=== PATIENT | female | born 1960 | race Caucasian/White ===

== ENCOUNTER → 2024-03-13 14:26 | Outpatient (REF) | payer BC, SELFPAY | LOC: HWWDC 14:26 | PROVIDERS: ATTENDING PHYSICIAN Student in an Organized Health Care Education/Training Program | DX: Z12.31 Encounter for screening mammogram for malignant neoplasm of breast (principal) | CPT/HCPCS: 77063; 77067 ==

== ENCOUNTER 2025-04-13 14:15 | Day surgery (SDC) | payer BC, SELFPAY ==
[2025-04-13] VITALS (14 sets, daily range): BP systolic 115–174; BP diastolic 56–95; BMI 26.8
--- NOTE | 2025-04-13 06:48 | ED.GENMED ---
History of Present Illness
General
Chief Complaint: Abdominal Pain
Source: patient
Exam Limitations: none
Time Seen by Provider: 04/13/25 06:27
History of Present Illness
History of Present Illness:
64yoF with a history of neurocardiac syncope and hypothyroidism presenting for evaluation of abdominal pain. Patient had a transient episode of right flank pain about 4 days ago. She started to experience some discomfort in her right abdomen
yesterday which started to worsen and become constant overnight. Pain is worse with movement. She has not taken anything [id number] for her symptoms. She is also experiencing nausea and dry heaves. She did not have any bowel movements
yesterday but started to experience loose stools overnight. She denies any chest pain, shortness of breath, fevers, urinary symptoms. No previous abdominal surgeries.
Past History
Past History
ED Past Medical History: Other (History of syncope and she takes Norpace and a history of hypothyroidism)
ED Past Surgical History: None
Social History
Tobacco: Non-smoker
Alcohol: Occasional
Personal:
Living: with family
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
Family History
Family History: Other (Melanoma)
Phy Exam
General Physical Exam
General Presentation: well appearing and no apparent distress
General Skin: warm and dry
General Habitus: normal
General Mental: alert
ENT Exam
ENT Exam: normocephalic
Pulmonary Exam
Pulmonary Exam: no respiratory distress
Gastrointestinal Exam
Gastrointestinal Exam: soft, non distended and other (+Tenderness in RLQ and R mid abdomen. +Rebound tenderness. Negative William's sign.)
Neurological Exam
Neurological Exam: alert
Rosa Coma Scale
Eye Opening: Spontaneous
Verbal Response: Oriented
Motor Response: Obeys Commands
GCS Total Score: 15
Skin Exam
Skin Exam: normal color and warm/dry
Psychiatric Exam
Psychiatric Exam: normal mood/affect
Course
Orders/Labs/Results
Orders:
Orders
04/13/25 06:40
Urine Reflex Culture from UA [Urinalysis Reflex To Culture] Urgent
Date Specimen was Collected: 04/13/25
Time Specimen was Collected: 06:37
04/13/25 06:43
0.9% Sodium Chloride 1000 ml [Nss] 1,000 ml IV BOLUS
Ondansetron Injectable [Zofran] 4 mg IV NOW STA
04/13/25 06:44
CT Abd/pelvis W Iv Cont Urgent
Comment:
Reason For Exam: RLQ pain
Cardiac Monitoring- Treatment ONCE
04/13/25 06:46
Complete Blood Count/With Diff Urgent
Comprehensive Metabolic Panel Urgent
Lipase Urgent
04/13/25 09:11
Piperacillin/Tazo 4.5 Gram [Zosyn] 4.5 gram in 100 ml IV NOW
04/13/25 09:15
0.9% Sodium Chloride 1000 ml [Nss] 1,000 ml IV BOLUS
Prochlorperazine [Compazine] 10 mg IV NOW STA
04/13/25 10:08
Fentanyl Citrate/Pf [Sublimaze] 25 mcg IV [id number] PRN
HYDROmorphone [Dilaudid] 0.25 mg IV [id number] PRN
HYDROmorphone [Dilaudid] 0.5 mg IV PACU-[id number] PRN
Ondansetron Injectable [Zofran] 4 mg IV PACU-ONCEPRN PRN
Prochlorperazine [Compazine] 5 mg IV PACU-ONCEPRN PRN
Notify MD As Directed
Notify physician if: for SDS patients with known or suspected sleep obstructive sleep apnea, monitor in the
PACU.
Notify MD for any apneic/desaturation episodes
O2 Therapy [RESP] Urgent
Titrate/Wean O2 to maintain O2 sat greater than (%): 92
Special Instructions: -Provide supplemental oxygen to achieve O2 sat of 92% or greater.
-After 15 min, may wean O2 and discontinue if patient is able to maintain O2 sat of 92%
or greater during recovery period.
If patient is a discharge home, without oxygen therapy, notify anestheiologist if
unable to maintain O2 SAT of 92% or greater on room air for MD clearance.
04/13/25 10:15
Normosol (Mult Electrolytes) [Normosol-R/Plasmalyte-A] 1,000 ml IV PER PROTOCOL
Abnormal Lab Results
04/13/25
06:46
RBC 4.06 L 10^6/uL
(4.20-5.40)
MCH 31.3 H pg
(27.0-31.0)
MPV 11.4 H fL
(7.4-10.4)
Absolute Neuts (auto) 7.7 H 10^3/uL
(1.4-6.5)
Absolute Lymphs (auto) 0.9 L 10^3/uL
(1.2-3.4)
Neutrophils % 84.4 H %
(42.2-75.2)
Lymphocytes % 10.0 L %
(20.5-51.1)
Glucose 114 H mg/dl
(70-99)
04/13/25 06:46
04/13/25 06:46
Vital Signs
Initial and Last Documented VS:
Initial Vital Signs
Temp Pulse Resp BP Pulse Ox
98.4 F 72 20 174/86 100
04/13/25 06:04 04/13/25 06:04 04/13/25 06:04 04/13/25 06:04 04/13/25 06:04
Last Documented Vital Signs
Temp Pulse Resp BP Pulse Ox
98.4 F 72 20 154/80 99
04/13/25 06:04 04/13/25 06:04 04/13/25 06:04 04/13/25 10:00 04/13/25 08:02
MDM/Problems Addressed
Differential Diagnosis Includes:
64yoF here with R lower abd pain that started to worsen over 24 hours. Associated with nausea. She is hypertensive but otherwise normal vital signs. She is nontoxic-appearing. There is rebound tenderness noted on abdominal exam. Differential
diagnosis includes but is not limited to: Appendicitis, epiploic appendagitis, colitis, cholecystitis, kidney stone
Initial ED plan: Check abdominal labs, UA, and CT abdomen. She declines analgesics. IV Zofran and fluid bolus ordered.
*Pulse Oximetry
SaO2: 100
Oxygen Mode of Delivery: Room air
Patient hypoxic: no
*Critical Care Note
Total Time (30-74mins, 75-104mins- exclusive of procedures): Not Applicable
Update Note
Update Note:
CT shows evidence of acute appendicitis. There is a nodule seen incidentally near the pancreatic tail. Patient informed of this incidental finding and she was provided with a copy of her CT scan results. White count and labs unremarkable.
General surgery notified. IV Zosyn ordered and patient admitted for further management.
ED Attending Note
-
Portions of this chart may have been created with voice recognition software.� Occasional wrong word or��sound alike� substitutions may have occurred due to the inherent limitations of voice recognition software.
Discharge Plan
Departure
Patient Disposition: Admit
Date of Disposition: 04/13/25
Time of Disposition: 09:20
Presentation/result/management discussed w/ accepting /DO: Dr. Champion
Discharge Problem:
Acute appendicitis, Pancreatic lesion
Prescriptions:
No Action
disopyramide phosphate 100 mg capsule
100 mg PO TID
levothyroxine [Synthroid] 100 mcg tablet
100 mcg PO DAILY@0600
midodrine 2.5 mg tablet
2.5 mg PO DAILY
simethicone [Gas-X] 80 mg Tablet,Chewable
80 mg PO TIDPRN PRN (Reason: GAS PAINS)
cholecalciferol (vitamin D3) [Vitamin D3] 25 mcg (1,000 unit) Capsule
25 mcg PO DAILY
Probiotic 10 billion cell Capsule
10,000 mmu cells PO DAILY
Referrals:
Inés Dunaway PA-C [Family Provider, Family Practice]
Interventions
Interventions:
*Risk Screen - Suicide Last Done: 04/13/25 06:34
*General Assessment Last Done: 04/13/25 06:34
*Neglect/Abuse Screening Last Done: 04/13/25 06:34
*ED- Fall Risk Assessment Last Done: 04/13/25 06:34
*ED COVID-19 Vaccine History Last Done: 04/13/25 06:34
CG-Okhfai-Jbufqktaza Assessment Last Done: 04/13/25 06:34
Discharge Date and Time
Print Language: OMANI
[2025-04-13] MEDS: NSS 1000 IV ×2 (06:49→09:31)
[2025-04-13] MEDS: ZOFRAN 4 MG IV (06:49)
[2025-04-13 06:57] LABS: Hematocrit 37.3 % (37.0-47.0); Hemoglobin 12.7 g/dL (12.0-16.0); Mean Corp Hgb Conc. 34.0 g/dL (33.0-37.0); Mean Corpuscular Volume 91.9 fL (81.0-99.0); Nucleated Red Blood Cells % 0 %; Platelet Count 153 10^3/uL (130-400); Red Cell Dist. Width 12.3 % (11.5-14.5)
[2025-04-13 07:17] LABS: ALT (SGPT) 21 U/L (0-35); AST (SGOT) 23 U/L (14-36); Albumin 4.2 g/dl (3.5-5.0); Alkaline Phosphatase 70 U/L (38-126); Blood Urea Nitrogen 11 mg/dl (7-17); Calcium 8.7 mg/dl (8.4-10.2); Carbon Dioxide 25 mmol/L (22-30); Chloride 104 mmol/L (98-107); Estimated Creatinine Clearance 68 ml/min; Glucose 114 mg/dl (70-99); Lipase 123 U/L (23-300); Potassium 4.4 mmol/L (3.5-5.1); Sodium 135 mmol/L (135-145); Total Protein 6.3 g/dl (6.3-8.2); eGFR > 60.00
[2025-04-13 07:22] LABS: Urine Character Clear (Clear)
[2025-04-13] MEDS: COMPAZINE 10 MG IV (09:30)
[2025-04-13] MEDS: ZOSYN 100 IV (09:31)
--- NOTE | 2025-04-13 10:17 | CON.GS ---
Medical History
-
Chief Complaint: RLQ abdominal pain
History of Present Illness:
Patient is a 64 yo F with a PMH of neurocardiac syncope and hypothyroidism who presents with RLQ abdominal pain. Ms. Sepulveda states that on Saturday she had a brief episode of RIGHT flank pain which resolved with ibuprofen. Over the weekend she
denies any pain or discomfort. On Saturday she developed worsening RLQ abdominal pain which has since persisted. Associated nausea and dry heaves, as well as chills. She denies any fevers or true vomiting episodes. No diarrhea or bloody stools.
No chronic GI issues. Colonoscopy in 2020 notable for 4 mm hyperplastic polyp of the descending colon and diverticulosis.
Past Medical History
Past Medical History: Other (Cardiogenic syncope)
Past Surgical History: Orthopedic (LEFT knee surgery)
Social History
Tobacco: Non-Smoker
Alcohol: Occasional
Drug: None
Personal:
Living: With Family
Family History
Family History: Reviewed & Noncontributory
Allergies / Home Medications
Allergy/AdvReac Type Severity Reaction Status Date / Time
adhesive Allergy Unknown Verified 04/13/25 06:07
NKA - No Known Allergies Allergy Unknown Uncoded 09/20/21 15:07
�Medication �Instructions �Recorded �Confirmed �Type
Lactobacillus acidophilus 10 10,000 mmu cells PO DAILY 04/13/25 04/13/25 History
billion cell capsule (Probiotic)
cholecalciferol (vitamin D3) 25 25 mcg PO DAILY 04/13/25 04/13/25 History
mcg (1,000 unit) capsule (Vitamin
D3)
disopyramide phosphate 100 mg 100 mg PO TID 04/13/25 04/13/25 History
capsule
levothyroxine 100 mcg tablet 100 mcg PO DAILY@0600 04/13/25 04/13/25 History
(Synthroid)
midodrine 2.5 mg tablet 2.5 mg PO DAILY 04/13/25 04/13/25 History
simethicone 80 mg chewable tablet 80 mg PO TIDPRN PRN GAS PAINS 04/13/25 04/13/25 History
Review of Systems
-
A 10 point review of systems was completed, and was negative except as per HPI.
Physical Exam
Vital Signs
Temp Pulse Resp BP Pulse Ox
98.4 F 72 20 174/86 100
04/13/25 06:04 04/13/25 06:04 04/13/25 06:04 04/13/25 06:04 04/13/25 06:50
04/12/25 04/13/25 04/14/25
06:59 06:59 06:59
Actual Weight 75.4 kg
Body Mass Index (BMI) 26.8
Lab Results
04/13/25 06:46
04/13/25 06:46
WBC 9.1 10^3/uL (4.8-10.8) 04/13/25 06:46
Hgb 12.7 g/dL (12.0-16.0) 04/13/25 06:46
Hct 37.3 % (37.0-47.0) 04/13/25 06:46
Plt Count 153 10^3/uL (130-400) 04/13/25 06:46
Abs Immat Gran (auto) 0.0 10^3/uL (0-0.05) 04/13/25 06:46
Neutrophils % 84.4 % (42.2-75.2) H 04/13/25 06:46
Physical Exam
General: Well Developed, Well Nourished and No Apparent Distress
HEENT: Normocephalic and Anicteric
Respiratory: Non Labored Respirations
Cardiac: Regular Rhythm
GI: Soft, Non Distended, Tender (RLQ) and Other (No diffuse peritonitis)
Skin: Warm and Dry
Neuro: Nonfocal/Grossly Intact
Data Reviewed
-
CT Scan: Image Personally Visualized and interpreted and Report Reviewed by me
Labs: Labs Reviewed by me
Old Records: Reviewed
Assessment / Plan
-
Patient is a 64 yo F p/w acute appendicitis
The natural history and pathophysiology of appendicitis was reviewed. CT scan imaging as a relates to her appendix was reviewed. Options for management including medical management with antibiotics versus surgical management with appendectomy were
considered and discussed. The pros and cons of both approaches was discussed. Specifically, we discussed failure of medical management and future episodes of appendicitis versus surgical risks. Recommended plan for appendectomy.
Plan for a laparoscopic appendectomy. The procedure itself, as well as the risks, benefits, and alternatives was discussed. Specifically, we discussed the risks of bleeding, infection, injury to surrounding structures (bowel, bladder), staple line
leak, and need for open reoperation. Typical postprocedural coverage was discussed. All questions answered. Consent signed.
-- Laparoscopic appendectomy
-- NPO, IVF
--Pain control: Tylenol and IV Dilaudid as needed
-- Antibiotics: Zosyn
--- NOTE | 2025-04-13 10:23 | W.SUR.PREOP ---
Pre-Operative Surgical Note
-
I have examined this patient prior to the performance of the scheduled procedure.
The patient's condition is unchanged from the time of the current History and
Physical and the patient is able to undergo the scheduled procedure.
--- NOTE | 2025-04-13 12:50 | CM ---
CM reviewed chart and met with pt bedside in ED. Lives with her in 2 story home, [address], has first floor half bath, full flight to second floor bedroom and full bath.
Independent in ADLs, personal care and ambulation at baseline. No assistive devices. Has RW from past surgery.
Confirms prescription coverage.
No hx VN or SNF
PCP: Inés Dunaway
Pharmacy: [facility] [address]
Anticipate discharge home, CM will continue to follow for any discharge planning needs.
--- NOTE | 2025-04-13 15:49 | W.IMMPOSTOP ---
Surgical Immed Post Op Note
-
Primary Surgeon: Jaycee
Assisting Surgeon: None
Pre-op Diagnosis: Acute appendicitis
Post-op Diagnosis: Acute appendicitis
Procedure Performed: Laparoscopic appendectomy
Anesthesia Type: General
Specimen / Cultures:
1. Appendix
Estimated Blood Loss: 3 cc
Complications: None
Operative Findings:
1. Acutely inflamed dilated appendix, healthy base, no perforation, turbid, purulent fluid removed from pelvis
2. Mesentery taken with Ligasure, base with harden load stapler
[2025-04-13] MEDS: TYLENOL PO (16:37)
[2025-04-13] MEDS: NORMOSOL-R/PLASMALYTE-A 1000 IV (18:11)
[2025-04-13] MEDS: NON-FORMULARY ITEM PO (18:46)
[2025-04-13] MEDS: ZOSYN 50 IV (19:50)
[2025-04-13] MEDS: TYLENOL 650 MG PO ×2 (19:50→23:18)
[2025-04-13] MEDS: NON-FORMULARY ITEM 100 MG PO (21:25)
[2025-04-14] MEDS: ZOSYN 50 IV ×2 (01:04→08:02)
[2025-04-14 03:06] VITALS: BP 111/64
[2025-04-14] MEDS: TYLENOL 650 MG PO ×2 (03:17→08:01)
[2025-04-14] MEDS: SYNTHROID 100 MCG PO (05:19)
[2025-04-14 07:15] VITALS: BP 131/75
[2025-04-14] MEDS: NON-FORMULARY ITEM 100 MG PO (08:01)
--- NOTE | 2025-04-14 09:27 | W.PN.GS2 ---
Today's Communication / Plan
-
-- DC today
Assessment / Plan
-
Patient is a 64 yo F POD#1 s/p laparoscopic appendectomy
AVSS
No repeat labs
Recovering well. No postoperative concerns. Okay for discharge from surgical perspective.
-- Regular diet
-- Pain control: Tylenol, Toradol, Oxycodone
-- HLIV
-- Abx: Zosyn, plan for Augmentin 4 d on DC
-- DVT: Lovenox, SCDs
-- DC today
Subjective Data
-
Date of Service: April 14, 2025
No concerns or complaints. Pain well-controlled. Tolerated regular diet. No nausea or vomiting. Passing flatus. Afebrile. Ambulating. Voiding.
Objective Data
-
Intake and Output
04/13/25 04/14/25 04/15/25
06:59 06:59 06:59
Intake Total 1240 / 1240
Balance 1240 / 1240
Intake:
Oral fluids 240 / 240
IV fluids (Total) 900 / 900
Normosal 200 / 200
IV piggybacks 100 / 100
Other:
Number of approximated MODERATE 3
amounts of urine
Vital Signs
Temp Pulse Resp BP Pulse Ox
97.8 F 60 16 131/75 100
04/14/25 07:15 04/14/25 07:15 04/14/25 07:15 04/14/25 07:15 04/14/25 07:15
Lab Results
04/13/25 06:46
04/13/25 06:46
Calcium 8.7 mg/dl (8.4-10.2) 04/13/25 06:46
Total Bilirubin 0.5 mg/dl (0.2-1.3) 04/13/25 06:46
AST 23 U/L (14-36) 04/13/25 06:46
ALT 21 U/L (0-35) 04/13/25 06:46
Alkaline Phosphatase 70 U/L (38-126) 04/13/25 06:46
Total Protein 6.3 g/dl (6.3-8.2) 04/13/25 06:46
Albumin 4.2 g/dl (3.5-5.0) 04/13/25 06:46
Physical Exam
-
Gen: NAD
Abd: soft, NT/ND, non-peritoneal, incisions c/d/i - no erythema, ecchymosis or drainage
Patient has a mahoney catheter: No
Patient has a central line: No
== END 2025-04-14 10:59 | disposition home or self-care (01) ==
LOC: PACU 14:15
PROVIDERS: Physician Assistant; ATTENDING PHYSICIAN Surgery; EMERGENCY PHYSICIAN Emergency Medicine; FAMILY PHYSICIAN Student in an Organized Health Care Education/Training Program
DX: K35.80 Unspecified acute appendicitis (principal)
CPT/HCPCS: 44970; 74177; 80053; 81003; 83690; 85025; 88304; 96374; 96375; 99284; Q9967

== ENCOUNTER → 2025-06-28 17:20 | Outpatient (REF) | payer BC, SELFPAY | LOC: MRI 17:20 | PROVIDERS: ATTENDING PHYSICIAN Internal Medicine Gastroenterology; FAMILY PHYSICIAN Student in an Organized Health Care Education/Training Program | DX: K86.2 Cyst of pancreas (principal) | CPT/HCPCS: 74183; A9575 ==